=== PATIENT | female | born 1995 | race Two or more races ===

== ENCOUNTER 2018-03-29 20:54 | Emergency (ER) | payer OTHER ==
[2018-03-29 22:05] LABS: ABS Basophils 0 10^3/ul (0-0.2); ABS Eosinophils 0.2 10^3/ul (0-0.6); ABS Lymphocytes 1.8 10^3/ul (1.0-4.8); ABS Monocytes 0.4 10^3/ul (0-0.8); ABS Neutrophils 3.8 10^3/ul (1.5-7.7); ABS Nucleated RBC 0 10^3/ul; Eosinophil % 3.3 % (0-6); Hematocrit 36 % (35-47); Hemoglobin 12.3 g/dl (12.0-16.0); Lymphocyte % 29.1 % (25-47); Mean Corpuscular HGB Conc 34 g/dl (31-36); Mean Corpuscular Hemoglobin 29 pg (27-31); Mean Corpuscular Volume 84 fL (80-97); Mean Platelet Volume 10.2 um3 (7.4-10.4); Nucleated Red Blood Cells % 0; Platelet Count 218 10^3/ul (150-450); Red Blood Count 4.31 10^6/ul (4.00-5.40); Red Cell Distribution Width 15 % (10.5-15); White Blood Count 6.3 10^3/ul (3.5-10.8)
[2018-03-30 00:28] LABS: Urine Appearance Clear; Urine Blood Negative (Negative); Urine Color Colorless; Urine Ketones Negative (Negative); Urine Protein Negative (Negative); Urine Urobilinogen Negative (Negative)
--- NOTE | 2018-03-30 01:52 | ED ---
Abdominal Pain/Female - HPI Summary HPI Summary: This is johana Weller documenting for attending Dr. Denilson Donaldson MD. A 22 y/o female presents to the ED c/o intermittent abdominal pain. According to the patient she exhibits sharp pain in her abdomen for the past 2 weeks. She decided to come in the ED today because she felt worse. The patient noted that she is 15 weeks , however she is unsure whether or not this feels like pain. She characterized her abdominal pain as sharp, but she did say that there was some cramping radiating to the side. Pt denies any nausea, chills , fever, vaginal pain/bleeding or vomiting. No known allergies. Currently has no pain - History of Current Complaint Chief Complaint: EDAbdPain Stated Complaint: PAIN RT SIDE ABD 15 WK PREG Time Seen by Provider: 03/30/18 01:18 Onset/Duration: Sudden Onset - 2 weeks ago, Still Present - Intermittent Timing: Intermittent Episode Lasting Severity Initially: Severe Severity Currently: Severe Pain Intensity: 8 Pain Scale Used: 0-10 Numeric Location: Diffuse Radiates: Yes Radiates to: Other - cramping on sides Character: Sharp, Cramping Aggravating Factor(s): Nothing Alleviating Factor(s): Nothing Associated Signs and Symptoms: Negative: Fever, Vaginal Bleeding, Vaginal Discharge, Nausea, Vomiting Allergies/Adverse Reactions: Allergies Allergy/AdvReac Type Severity Reaction Status Date / Time No Known Allergies Allergy Verified 03/29/18 20:58 PMH/Surg Hx/FS Hx/Imm Hx Endocrine/Hematology History: Denies: Hx Diabetes Cardiovascular History: Denies: Hx Hypertension Respiratory History: Reports: Hx Asthma Infectious Disease History: No Infectious Disease History: Denies: Traveled Outside the [place] in Last 30 Days - Family History Known Family History: Positive: Hypertension, Diabetes, Other - Heart issues, CVA, asthma - Social History Lives: With Family - With parents Alcohol Use: Occasionally Substance Use Type: Reports: Marijuana - Occasionally Hx Tobacco Use: No Review of Systems Negative: Fever, Chills Positive: Abdominal Pain. Negative: Vomiting, Nausea Negative: burning, dysuria, discharge, pain All Other Systems Reviewed And Are Negative: Yes Physical Exam - Summary Physical Exam Summary: GENERAL: Patient is a well developed and nourished female who is lying comfortable in the stretcher. Patient is not in any acute respiratory distress. HEAD AND FACE: Normocephalic EYES: PERRLA, EOMI x 2. EARS: Hearing grossly intact. MOUTH: Oropharynx within normal limits. NECK: Supple, trachea is midline, no adenopathy, no JVD, no carotid bruit. CHEST: Symmetric, no tenderness at palpation LUNGS: Clear to auscultation bilaterally. No wheezing or crackles. CVS: Regular rate and rhythm, S1 and S2 present, no murmurs or gallops appreciated. ABDOMEN: Soft, non-tender. Bowel sounds are normal. No abdominal abnormal pulsations. No tenderness to palpation. EXTREMITIES: Full ROM in all major joints, no edema, no cyanosis or clubbing. NEURO: Alert and oriented x 3. No acute neurological deficits. Speech is normal and follows commands. SKIN: Dry and warm Triage Information Reviewed: Yes Vital Signs On Initial Exam: Initial Vitals Temp Pulse Resp BP Pulse Ox 97.8 F 82 15 121/69 100 03/29/18 20:58 03/29/18 20:58 03/29/18 20:58 03/29/18 20:58 03/29/18 20:58 Vital Signs Reviewed: Yes Diagnostics - Vital Signs Vital Signs Temp Pulse Resp BP Pulse Ox 03/29/18 23:08 98.1 F 77 15 124/64 100 03/29/18 20:58 97.8 F 82 15 121/69 100 - Laboratory Lab Results: Lab Results 03/29/18 03/29/18 03/29/18 Range/Units 00:19 21:47 21:47 WBC 6.3 (3.5-10.8) 10^3/ul RBC 4.31 (4.00-5.40) 10^6/ul Hgb 12.3 (12.0-16.0) g/dl Hct 36 (35-47) % MCV 84 (80-97) fL MCH 29 (27-31) pg MCHC 34 (31-36) g/dl RDW 15 (10.5-15) % Plt Count 218 (150-450) 10^3/ul MPV 10.2 (7.4-10.4) um3 Neut % (Auto) 60.5 (38-83) % Lymph % (Auto) 29.1 (25-47) % [place] % (Auto) 6.6 (0-7) % Eos % (Auto) 3.3 (0-6) % Baso % (Auto) 0.5 (0-2) % Absolute Neuts (auto) 3.8 (1.5-7.7) 10^3/ul Absolute Lymphs (auto) 1.8 (1.0-4.8) 10^3/ul Absolute Monos (auto) 0.4 (0-0.8) 10^3/ul Absolute Eos (auto) 0.2 (0-0.6) 10^3/ul Absolute Basos (auto) 0 (0-0.2) 10^3/ul Absolute Nucleated RBC 0 10^3/ul Nucleated RBC % 0 Sodium 136 (135-145) mmol/L Potassium 3.9 (3.5-5.0) mmol/L Chloride 102 (101-111) mmol/L Carbon Dioxide 26 (22-32) mmol/L Anion Gap 8 (2-11) mmol/L BUN 7 (6-24) mg/dL Creatinine 0.56 (0.51-0.95) mg/dL Est GFR ( Amer) 167.0 (>60) Est GFR (Non-Af Amer) 138.0 (>60) BUN/Creatinine Ratio 12.5 (8-20) Glucose 87 (70-100) mg/dL Lactic Acid (0.5-2.0) mmol/L Calcium 9.4 (8.6-10.3) mg/dL Total Bilirubin 0.20 (0.2-1.0) mg/dL AST 42 H (13-39) U/L ALT 58 H (7-52) U/L Alkaline Phosphatase 48 (34-104) U/L C-Reactive Protein 3.65 (<8.01) mg/L Total Protein 6.8 (6.4-8.9) g/dL Albumin 3.8 (3.2-5.2) g/dL Globulin 3.0 (2-4) g/dL Albumin/Globulin Ratio 1.3 (1-3) Lipase 28 (11.0-82.0) U/L Beta HCG, Quant 015140.00 mIU/mL Urine Color Colorless Urine Appearance Clear Urine pH 7.0 (5-9) Ur Specific [place] 1.000 L (1.010-1.030) Urine Protein Negative (Negative) Urine Ketones Negative (Negative) Urine Blood Negative (Negative) Urine Nitrate Negative (Negative) Urine Bilirubin Negative (Negative) Urine Urobilinogen Negative (Negative) Ur Leukocyte Esterase Negative (Negative) Urine Glucose Negative (Negative) 03/29/18 Range/Units 21:47 WBC (3.5-10.8) 10^3/ul RBC (4.00-5.40) 10^6/ul Hgb (12.0-16.0) g/dl Hct (35-47) % MCV (80-97) fL MCH (27-31) pg MCHC (31-36) g/dl RDW (10.5-15) % Plt Count (150-450) 10^3/ul MPV (7.4-10.4) um3 Neut % (Auto) (38-83) % Lymph % (Auto) (25-47) % [place] % (Auto) (0-7) % Eos % (Auto) (0-6) % Baso % (Auto) (0-2) % Absolute Neuts (auto) (1.5-7.7) 10^3/ul Absolute Lymphs (auto) (1.0-4.8) 10^3/ul Absolute Monos (auto) (0-0.8) 10^3/ul Absolute Eos (auto) (0-0.6) 10^3/ul Absolute Basos (auto) (0-0.2) 10^3/ul Absolute Nucleated RBC 10^3/ul Nucleated RBC % Sodium (135-145) mmol/L Potassium (3.5-5.0) mmol/L Chloride (101-111) mmol/L Carbon Dioxide (22-32) mmol/L Anion Gap (2-11) mmol/L BUN (6-24) mg/dL Creatinine (0.51-0.95) mg/dL Est GFR ( Amer) (>60) Est GFR (Non-Af Amer) (>60) BUN/Creatinine Ratio (8-20) Glucose (70-100) mg/dL Lactic Acid 1.3 (0.5-2.0) mmol/L Calcium (8.6-10.3) mg/dL Total Bilirubin (0.2-1.0) mg/dL AST (13-39) U/L ALT (7-52) U/L Alkaline Phosphatase (34-104) U/L C-Reactive Protein (<8.01) mg/L Total Protein (6.4-8.9) g/dL Albumin (3.2-5.2) g/dL Globulin (2-4) g/dL Albumin/Globulin Ratio (1-3) Lipase (11.0-82.0) U/L Beta HCG, Quant mIU/mL Urine Color Urine Appearance Urine pH (5-9) Ur Specific [place] (1.010-1.030) Urine Protein (Negative) Urine Ketones (Negative) Urine Blood (Negative) Urine Nitrate (Negative) Urine Bilirubin (Negative) Urine Urobilinogen (Negative) Ur Leukocyte Esterase (Negative) Urine Glucose (Negative) Result Diagrams: 03/29/18 21:47 03/29/18 21:47 Lab Statement: Any lab studies that have been ordered have been reviewed, and results considered in the medical decision making process. - Ultrasound No standard instances Ultrasound Interpretation Completed By: Radiologist - US: Single viable intravterine in breech position with a gestational age by ultrasound of 16 weeks 2 days and estimated date of delivery on 09/11/2018. Size larger than dates. Abdominal Pain Fem Course/Dx - Course Course Of Treatment: A 22 y/o female presents to the ED c/o intermittent abdominal pain. According to the patient she exhibits sharp pain in her abdomen for the past 2 weeks. She decided to come in the ED today because she felt worse. The patient noted that she is 15 weeks , however she is unsure whether or not this feels like pain. She characterized her abdominal pain as sharp, but she did say that there was some cramping radiating to the side. Pt denies any nausea, chills, fever, vaginal pain/bleeding or vomiting. PE reveals no TTP. A ultrasound revealed single viable intravterine in breech position with a gestational age by ultrasound of 16 weeks 2 days and estimated date of delivery on 09/11/2018. Size larger than dates, HR 155. In the ED course, the patient recieved no medications. Pt will be discharged with diagnosis of abdominal pain in . Pt is to follow up with PCP in 2-3 days. Pt is agreeable with this plan. - Diagnoses Provider Diagnoses: Abdominal pain, Discharge - Sign-Out/Discharge Documenting (check all that apply): Patient Departure - DISCHARGE - Discharge Plan Condition: Stable Disposition: HOME Patient Education Materials: Abdominal Pain in (ED) Referrals: No Primary Care Phys,NOPCP [Primary Care Provider] - [facility] [place] [facility] [place] [Outside] - 2 Days (FOLLOW UP WITH PRIMARY CARE PHYSICIAN IN 2-3 DAYS.) Additional Instructions: RETURN TO ED FOR ANY NEW OR WORSENING SYMPTOMS. - Billing Disposition and Condition Condition: STABLE Disposition: Home
[2018-03-30 02:20] VITALS: BP 124/69
--- NOTE | 2018-03-30 07:57 | RAD ---
Indication: Right lower quadrant pain. Evaluate for torsion of the ovary. Real-time sonography of the was performed. There is a single intrauterine gestation in breech presentation. There is a posterior placenta without evidence of placenta previa. heart activity is noted at 155 bpm. No weight is noted. The cervix is long and closed. Amniotic fluid is within normal limits. The BPD measures 3.23 cm corresponding to gestational age of 16 weeks 1 day. Head circumference measures 12.5 cm corresponding to gestational age of 16 weeks 3 days. Abdominal circumference measures 10.2 cm corresponding to gestational age of 16 weeks 2 days. Femur length measures 2.0 cm corresponding to gestational age of 15 weeks 6 days. The actual gestational age of 16 weeks 2 days determined by today's initial ultrasound. Estimated weight is 144 g. anatomy is limited due to early gestational age. The right ovary measures 3.3 x 1.9 x 2.2 cm. Flow is noted in the right ovary. The left ovary measures 3.0 x 1.8 x 1.6 cm. Doppler interrogation demonstrates flow in the left ovary. IMPRESSION: Single intrauterine gestation with a gestational age of 16 weeks 2 days. Estimated date of delivery is September 11, 2018. heart activity is noted at 155 bpm.
== END 2018-03-30 02:21 | disposition home or self-care (01) ==
LOC: ED 20:54
DX: O26.892 Other specified pregnancy related conditions, second trimester (principal); R10.31 Right lower quadrant pain; Z3A.16 16 weeks gestation of pregnancy; Z82.49 Family history of ischemic heart disease and other diseases of the circulatory system; Z83.3 Family history of diabetes mellitus; Z82.3 Family history of stroke; Z82.5 Family history of asthma and other chronic lower respiratory diseases
CPT/HCPCS: 36415; 76815; 80053; 81003; 83605; 83690; 84702; 85025; 86140; 99283